=== PATIENT | male | born 1985 | race Two or more races ===

== ENCOUNTER 2019-06-15 10:03 | Emergency (ER) | payer BC ==
[~2019-06-15] VITALS: Ht 190.5 cm; Wt 93.0 kg
[~2019-06-15 10:03] MED LIST: IBUP-1574 PO
[2019-06-15 10:56] LABS: BASOPHILS % (AUTO) 0.5 % (0-1); EOSINOPHILS # (AUTO) 0.1 X10'3 (0-0.9); EOSINOPHILS % (AUTO) 1.9 % (0-6); HEMATOCRIT 43.8 % (42.0-52.0); HEMOGLOBIN 15.4 g/dl (14.0-17.9); LYMPHOCYTES # (AUTO) 2.1 X10'3 (1.1-4.8); LYMPHOCYTES % (AUTO) 35.7 % (21-51); MEAN CORPUSCULAR HEMOGLOBIN 32.9 PG (27.0-31.0); MEAN CORPUSCULAR HGB CONC 35.2 g/dL (33.0-36.5); MEAN CORPUSCULAR VOLUME 93.4 FL (78-98); MONOCYTES # (AUTO) 0.5 X10'3 (0-0.9); MONOCYTES % (AUTO) 8.2 % (2-12); NEUTROPHILS # (AUTO) 3.2 X10'3 (1.8-7.7); NEUTROPHILS % (AUTO) 53.7 % (42-75); PLATELET COUNT 137 X10'3 (140-440); RED BLOOD COUNT 4.69 X10'6 (4.70-6.10); RED CELL DISTRIBUTION WIDTH 12.9 % (11.5-14.5); WHITE BLOOD COUNT 5.9 X10'3 (4.5-11.0)
[2019-06-15] MEDS ORDERED: famotidine 20mg tablet PO ONE (11:00)
[2019-06-15] MEDS ORDERED: aspirin 81mg tab.chew PO ONE (11:00)
[2019-06-15 11:09] LABS: PARTIAL THROMBOPLASTIN TIME 29 SECONDS (22-32)
[2019-06-15 11:15] LABS: ALANINE AMINOTRANSFERASE 46 U/L (12-78); ALBUMIN 3.9 G/DL (3.4-5.0); ALKALINE PHOSPHATASE 55 IU/L (46-116); ANION GAP 8 (8-16); ASPARTATE AMINO TRANSFERASE 22 U/L (10-37); BILIRUBIN,TOTAL 0.6 MG/DL (0.1-1.0); BLOOD UREA NITROGEN 18 MG/DL (7-18); BUN/CREATININE RATIO 17.5 (5.4-32.0); CHLORIDE 105 MMOL/L (99-107); CREATININE 1.03 MG/DL (0.60-1.10); GLUCOSE 120 MG/DL (70-104); POTASSIUM 3.7 MMOL/L (3.5-5.1); SODIUM 138 MMOL/L (135-145); TOTAL CARBON DIOXIDE 25.3 MMOL/L (24-32); TOTAL PROTEIN 7.8 G/DL (6.4-8.2); eGFR 83 ML/MIN
--- NOTE | 2019-06-15 11:55 | NUR ---
LAB CALLED REGARDING D DIMER: ONE RESULT HIGH, ONE RESULT LOW: D DIMER TO BE REDRAWN
[2019-06-15 13:13] LABS: D-DIMER < 0.19 MG/L FEU (0-0.50)
[2019-06-15 14:01] VITALS: BP 117/61
== END 2019-06-15 13:50 | disposition home or self-care (01) ==
LOC: ER 10:04
DX: R07.81 Pleurodynia (principal); Z88.1 Allergy status to other antibiotic agents; Z88.2 Allergy status to sulfonamides; Z88.8 Allergy status to other drugs, medicaments and biological substances
CPT/HCPCS: 36415; 71045; 80053; 84484; 85025; 85379; 85610; 85730; 93005; 99284

== ENCOUNTER 2020-01-24 07:14 | Emergency (ER) | payer BC ==
[~2020-01-24] VITALS: Ht 193 cm; Wt 100.0 kg
[2020-01-24 07:20] VITALS: BP 130/76
[2020-01-24] MEDS ORDERED: AZIT250T29 PO (07:40)
== END 2020-01-24 07:57 | disposition home or self-care (01) ==
LOC: ER 07:14
DX: J06.9 Acute upper respiratory infection, unspecified (principal); R05 Cough; Z88.1 Allergy status to other antibiotic agents; Z88.2 Allergy status to sulfonamides; Z79.2 Long term (current) use of antibiotics; Z79.899 Other long term (current) drug therapy
CPT/HCPCS: 99283